=== PATIENT | male | born 1995 | race Hispanic/Latino ===

== ENCOUNTER 2020-04-21 08:43 | Day surgery (SDC) | payer BC ==
[2020-04-21 09:51] LABS: #Basophils 0.1 thou/uL (0.0-0.2); #Eosinphils 0.7 thou/uL (0.0-0.7); #Lymphocytes 2.5 thou/uL (1.20-3.40); #Monocytes 0.9 thou/uL (0.11-0.59); #Neutrophils 5.4 thou/uL (1.40-6.50); %Basophils 1.2 % (0.0-1.0); %Eosinophils 7.1 % (0.0-10.0); %Lymphocytes 25.8 % (21.0-51.0); %Monocytes 9.7 % (0.0-10.0); %Neutrophils 56.3 % (42.0-75.0); Hemoglobin 14.7 g/dL (14.0-18.0); Mean Corpuscular Hemoglobin 29.8 pg (27.0-31.0); Mean Corpuscular Volume 90.4 fL (78.0-98.0); Platelet Count 234 thou/uL (130-400); RBC Distribution Width 13.1 % (11.5-14.5); Red Blood Cell (RBC) Count 4.93 mill/uL (4.70-6.10); White Blood Cell (WBC) Count 9.5 thou/uL (4.8-10.8)
[2020-04-21 10:09] LABS: ALT (SGPT) 23 U/L (8-55); AST (SGOT) 25 U/L (5-34); Albumin 4.2 g/dL (3.5-5.0); Alkaline Phosphatase 64 U/L (40-110); Anion Gap 12 mmol/L (10-20); BUN (Urea Nitrogen) 12 mg/dL (8.9-20.6); Bilirubin, Total 0.9 mg/dL (0.2-1.2); Calc. Creatinine Clearance 0 mL/min (70-130); Calcium 9.4 mg/dL (7.8-10.44); Carbon Dioxide 25 mmol/L (22-29); Chloride 108 mmol/L (98-107); Estimated GFR-MDRD Greater than 90; Globulin 2.9 g/dL (2.4-3.5); Glucose 93 mg/dL (70-105); Protein, Total 7.1 g/dL (6.0-8.3); Sodium 141 mmol/L (136-145)
[2020-04-21] MEDS ORDERED: Iopamidol 0 ML FS ONE (10:58)
--- NOTE | 2020-04-21 13:56 | CON ---
DATE OF CONSULTATION: 04/21/2020 REASON FOR CONSULTATION: Esophageal food bolus obstruction. CONSULTING PROVIDER: Carroll Au MD HISTORY OF PRESENT ILLNESS: The patient is a 24-year-old male with past medical history of seasonal allergies and gastroesophageal reflux disease, presenting with complaints of dysphagia. He states that a few days ago while hunting bore he became inebriated and sustained a fall to the face, requiring stitching of his lower mandible in order to correct a skin defect/laceration. In the postprocedure period, he exhibited increased pain with eating or drinking anything. Late last night at around 5 to 6 p.m. while eating fajitas, he did not adequately chew the fajitas well and experienced acute dysphagia upon swallowing a larger food bolus. He characterized this as the sensation that food got stuck at the level of the sternal notch and was not alleviated with inducing vomiting, drinking beer, or coughing in order to expel the obstruction. This was associated with increased chest pressure at the level of the sternal notch and extending down to the xiphoid process as well as inability to tolerate his own secretions with intermittent episodes of nausea and vomiting in order to expel his esophageal contents. Otherwise, he denies any fevers, chills, hematemesis, melena, hematochezia, abdominal pain, or recent weight loss. Subsequently, he sought healthcare assistance and went to the [facility] where the patient was monitored overnight last night with a CT scan showing a distal esophageal food obstruction that did not allow the passage of contrast past it. With continuous symptoms until this morning, he was subsequently transferred to [facility] for further evaluation. Of note, the patient also stated that he has been having intermittent episodes of dysphagia that have been present for at least the last 6-12 months. This is characterized as intermittent sensation that food would have more of a difficult time, located at the sternal notch and mid chest. He adds this would occur once every 1-2 months and would only last for seconds in duration; however, he has a concurrent diagnosis of acid reflux and states that he gets acid reflux at least once every couple of days. REVIEW OF SYSTEMS: A 10-category review of systems was obtained with all responses negative except for the pertinent positives as listed in HPI. PAST MEDICAL HISTORY: As per HPI. PAST SURGICAL HISTORY: Rhinoplasty. FAMILY HISTORY: Denies any GI malignancies. SOCIAL HISTORY: He vapes daily and smokes approximately 5 cigarettes per month. He drinks around 5 to 6 beers/mixed drinks around 2 times per week, but denies any illicit drug use. OUTPATIENT MEDICATIONS: Include: 1. Zyrtec. 2. Advil. 3. Pepcid p.r.n. ALLERGIES: NO KNOWN DRUG ALLERGIES. PHYSICAL EXAMINATION: VITAL SIGNS: Not charted, unavailable for review. GENERAL: The patient was lying in bed, in no acute distress. Alert and oriented x4. HEENT: Normocephalic and atraumatic. NECK: Supple. No JVD or scleral icterus noted. CARDIOVASCULAR: Regular rate and rhythm with no discernable murmurs, gallops, or rubs. RESPIRATORY: Clear to auscultation bilaterally with no discernable wheezes or rales. ABDOMEN: Normoactive bowel sounds. Soft, nondistended. Mild tenderness to palpation in the midepigastric region, but no tenderness in other abdominal quadrants. EXTREMITIES: No cyanosis, clubbing, or edema. LABORATORY DATA: CBC with a white blood cell count of 9.5, hemoglobin 14.7, hematocrit 44.6, and platelets 234. Chemistry with a sodium of 141, potassium 4, chloride 108, CO2 of 25, BUN 12, creatinine 0.95, and glucose 93. AST 25, ALT 23, alkaline phosphatase 64, and total bilirubin 0.9. IMAGING DATA: CT scan was obtained on 04/20/2020, and obtained at the [facility] with the impression only available for review at this time, showing a distal esophageal food obstruction with lack of contrast flowing around this obstruction. ASSESSMENT AND PLAN: The patient is a 24-year-old male with past medical history of seasonal allergies and acid reflux, presenting with a food bolus obstruction. Food bolus obstruction: The patient is presenting with acute onset of dysphagia after eating fajitas, characterized as the sensation that food was getting stuck at the level of the sternal notch and resulted in inability to tolerate oral intake and inability to tolerate his own secretions. He was subsequently evaluated at the [facility] with a CT scan, confirming the food bolus obstruction in the distal esophagus that was completely obstructed and did not allow for the passage of contrast. He was held there overnight for presumably observation and administration of glucagon, both of which did not relieve his symptoms. He was subsequently transferred to [facility] for further evaluation. At the current time, he does have some mild chest pressure and has an emesis bag at bedside, for which the patient was periodically spitting up his own secretions. At this time, it is consistent with a food bolus obstruction and will need emergent esophagogastroduodenoscopy in order to alleviate obstruction. RECOMMENDATIONS: 1. Would continue the patient on n.p.o. status in anticipation of the EGD later or within the next few hours. 2. Would plan for emergent EGD for relief of the esophageal food obstruction. 3. The patient will need to be on daily PPI after the procedure given the higher likelihood of ulceration and the possibility of acid reflux generating the inciting incident for the food bolus obstruction. 4. Strongly suggest alcohol and tobacco cessation. We will continue to follow. Please call with any questions. Job ID: [id number]
--- NOTE | 2020-04-21 14:09 | OP ---
DATE OF PROCEDURE: 04/21/2020 PROCEDURE PERFORMED: Esophagogastroduodenoscopy with esophageal obstruction/foreign body removal. INDICATIONS FOR PROCEDURE: Food bolus impaction. DESCRIPTION OF PROCEDURE: After the risks and benefits of the procedure were explained to the patient including risks of bleeding, infection, perforation, reactions to anesthesia, aspiration, and/or pain, informed consent was obtained. The patient was then taken to the endoscopy suite where he underwent general anesthesia and endotracheal tube intubation. Once the patient was intubated and sedated, he was then maneuvered into the left lateral decubitus position in preparation for the EGD. Using a standard gastroscope, it was introduced into the mouth with intubation of the esophagus, stomach, and the proximal small intestines with the findings listed below. The patient tolerated the procedure well with no immediate perioperative complications. Upon conclusion of the procedure, all equipment was removed from the patient and he was transferred to PACU in satisfactory condition. FINDINGS: Esophagus: Normal-appearing mucosa was seen in the mid esophagus; however, a large food bolus was seen completely obstructing the esophageal lumen, starting at approximately 36 cm past the incisors. Initial attempts at using a Mares Net were unsuccessful and breaking apart the food bolus given a harder nature to it. Subsequently, using Raptor forceps, the food bolus was then able to be successfully grasped and extracted through the mouth in one solid mass. Repeat examination of the esophagus then showed significant erythema, friability, and ulcerations, extending from 36 cm to 43 cm past the incisors. Mild narrowing of the distal esophagus was also seen due to significant swelling, presumably secondary to the food bolus impaction. (The impaction had been there since 6 p.m. last night). Otherwise, there was no mass lesions or significant active/recent bleeding seen in the distal esophagus. No biopsies were taken at this time given the significant amount of ulcerations seen in the distal esophagus. Stomach: Normal-appearing mucosa was seen in the gastric cardia, fundus, body, greater curvature, antrum, and incisura. There was no evidence of erosions, ulcerations, mass lesions, or active/recent bleeding. Duodenum: Normal-appearing mucosa was seen in both the duodenal bulb and second portion of duodenum. There was no evidence of erosions, ulcerations, mass lesions, or active/recent bleeding. IMPRESSION: 1. Large food bolus impaction in the distal esophagus, successfully removed with Raptor-tooth forceps. 2. LA grade C esophagitis, extending from 36 to 43 cm, presumably secondary to the food bolus impaction, but acid reflux cannot be ruled out at this time. 3. Mild luminal narrowing at the gastroesophageal junction, again presumably secondary to significant swelling from the food bolus impaction. RECOMMENDATIONS: 1. Would place the patient on a full liquid diet for the next 48 hours, then advance diet as tolerated. 2. Would start the patient on omeprazole 40 mg twice daily for the next 30 days until seen by GI physician. 3. Would recommend following up with an outpatient senior salesforce developer for re-evaluation of his acid reflux and repeat upper endoscopy to evaluate for acid reflux versus eosinophilic esophagitis, (which could contribute to the food bolus impaction today). 4. The patient can be discharged to home once PACU criteria have been met. We will sign off at this time. Please call with any questions. Job ID: [id number]
[2020-04-21] MEDS ORDERED: Succinylcholine Chloride 20 MG/ML 10 ml SYRINGE FS ONE (15:46)
[2020-04-21] MEDS ORDERED: Ondansetron PF 4 MG/2 ML Vial ONE (15:46)
[2020-04-21] MEDS ORDERED: PROPOFOL 200 MG/20 ML VIAL ONE (15:46)
[2020-04-21] MEDS ORDERED: Ketorolac Tromethamine 30 MG/ML VIAL ONE (15:46)
[2020-04-21] MEDS ORDERED: Dexamethasone 20 MG/5 ML VIAL ONE (15:46)
[2020-04-21] MEDS ORDERED: diphenhydrAMINE 50 MG/ML VIAL ONE (15:46)
== END 2020-04-21 13:00 | disposition home or self-care (01) ==
LOC: ERS 08:43 → SDC 11:07
PROVIDERS: ATTEND Internal Medicine
PROC: 0DC58ZZ Extirpation of Matter from Esophagus, Via Natural or Artificial Opening Endoscopic (ICD-10-PCS; principal; 2020-04-21)
DX: T18.128A Food in esophagus causing other injury, initial encounter (principal); E66.9 Obesity, unspecified; Z88.5 Allergy status to narcotic agent
CPT/HCPCS: 80053; 85025; J1100; J1200; J1885; J2405; J2704; Q9967